=== PATIENT | male | born 1990 | race Hispanic/Latino ===

== ENCOUNTER 2019-04-11 21:45 | Emergency (ER) | payer OTHER ==
[2019-04-11] MEDS ORDERED: BOOSTRIX IM ONE (21:53)
[2019-04-11] MEDS ORDERED: NACL 0.9% 1000 ML 1,000 ML IV ONE (21:53)
[2019-04-11] MEDS ORDERED: THERMAZENE 50 GRAM TP ONE (21:54)
[2019-04-11] MEDS ORDERED: NORCO 5/325 PO ONE (21:56)
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
[2019-04-11] MEDS ORDERED: ZOFRAN ODT PO ONE (22:08)
[2019-04-11] MEDS ORDERED: ZOFRAN ODT ONE (22:08)
[2019-04-11 22:19] VITALS: BP 135/88
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
== END 2019-04-11 23:15 | disposition home or self-care (01) ==
LOC: ED 21:45
DX: T23.202A Burn of second degree of left hand, unspecified site, initial encounter (principal); T23.232A Burn of second degree of multiple left fingers (nail), not including thumb, initial encounter; F17.200 Nicotine dependence, unspecified, uncomplicated; F12.10 Cannabis abuse, uncomplicated; W39.XXXA Discharge of firework, initial encounter; Y93.89 Activity, other specified; Y92.89 Other specified places as the place of occurrence of the external cause; Y99.8 Other external cause status
CPT/HCPCS: 90471; 90715; J7030; Q0162